=== PATIENT | male | born 1975 | race African-American/Black ===

== ENCOUNTER 2017-05-24 20:07 | Inpatient (IN) | payer OTHER, SELFPAY ==
[2017-05-24 21:23] LABS: Hematocrit 36.6 % (42.0-52.0); Red Blood Cell (RBC) Count 4.13 mill/uL (4.70-6.10); White Blood Cell (WBC) Count 4.4 thou/uL (4.8-10.8)
[2017-05-24 21:34] LABS: Lactic Acid - Sepsis 1.6 mmol/L (0.5-2.2)
[2017-05-24 21:37] LABS: Bilirubin Negative (Negative); Blood, Urine Negative (Negative); Glucose, Urine (Dipstick) Negative (Negative); Ketone, Urine Trace mg/dL (Negative); Nitrite Negative (Negative); Protein, Urine (Dipstick) Negative (Neg-Trace)
[2017-05-24 21:40] LABS: Band 7 % (5-11); Neutrophil 63 % (42-75)
[2017-05-24 21:53] LABS: ALT (SGPT) 146 U/L (8-55); AST (SGOT) 90 U/L (5-34); Alkaline Phosphatase 117 U/L (40-150); Anion Gap 11 mmol/L (10-20); BUN (Urea Nitrogen) 11 mg/dL (8.9-20.6); Bilirubin, Total 0.8 mg/dL (0.2-1.2); Calc. Creatinine Clearance 0 mL/min (70-130); Calcium 8.3 mg/dL (7.8-10.44); Carbon Dioxide 25 mmol/L (22-29); Chloride 104 mmol/L (98-107); Estimated GFR-MDRD Greater than 90; Lipase 4 U/L (8-78); Magnesium 1.7 mg/dL (1.6-2.6)
[2017-05-24 21:56] LABS: Troponin I Less than 0.010 ng/mL (< 0.028)
--- NOTE | 2017-05-24 23:04 | RAD ---
UPRIGHT PORTABLE CHEST ONE VIEW: 05/24/17 HISTORY: 41-year-old male with chest pain. There is marked enlargement of the cardiac silhouette which has the appearance of very large pericar dial effusion which was demonstrated on a CT scan from [facility] earlier this aft ernoon. There is some bilateral vascular congestion and bilateral pleural effusions. No confluent pn eumonia. IMPRESSION: Huge cardiac silhouette evidence for very large pericardial effusion which was documented on prior C T scan from [facility] earlier this afternoon. Small bilateral pleural effusions a nd some bilateral vascular congestion. Bibasilar subsegmental atelectasis. POS: [facility]
[2017-05-24] MEDS ORDERED: Ondansetron HCl/PF 4 MG/2 ML Vial IVP PRN (23:18)
[2017-05-24] MEDS ORDERED: HYDROcodone/Acetaminophen 5/325 mg Tablet PO PRN (23:18)
--- NOTE | 2017-05-24 23:18 | PDOC.EVN ---
Event Note - Event Note Event Note: [id number] h&p dictated 1. Pericardial effusion 2, HTN 3. R/O Cholecystitis 4. Abdominal pain plan: see orders
[2017-05-24] MEDS ORDERED: Morphine 2 MG/ML SYRINGE SLOW IVP PRN (23:22)
[2017-05-24] MEDS ORDERED: cloNIDine 0.1 MG TAB PO PRN (23:26)
[2017-05-25 00:22] LABS: Troponin I Less than 0.010 ng/mL (< 0.028)
[2017-05-25] MEDS ORDERED: Fentanyl 100 MCG/2 ML VIAL ONE ×2 (00:32→12:26)
[2017-05-25 01:48] VITALS: BMI 30.1
[2017-05-25] MEDS: Sodium Chloride 0.9% 1,000 ML IV SCH ×2 (02:03→13:43)
[2017-05-25] MEDS: Ampicillin/Sulbactam 3 GM in Sodium Chloride 0.9% 100 ML IVPB SCH ×5 (02:04→23:33)
[2017-05-25] MEDS: Acetaminophen 325 MG TAB PO PRN (02:07)
[2017-05-25 03:28] LABS: Mean Platelet Volume 5.9 fL (7.4-10.4); Red Blood Cell (RBC) Count 4.09 mill/uL (4.70-6.10); White Blood Cell (WBC) Count 4.8 thou/uL (4.8-10.8)
[2017-05-25 03:34] LABS: Band 5 % (5-11); Neutrophil 67 % (42-75)
[2017-05-25 03:45] LABS: ALT (SGPT) 135 U/L (8-55); AST (SGOT) 75 U/L (5-34); Alkaline Phosphatase 106 U/L (40-150); Anion Gap 10 mmol/L (10-20); BUN (Urea Nitrogen) 11 mg/dL (8.9-20.6); Bilirubin, Total 0.5 mg/dL (0.2-1.2); Calc. Creatinine Clearance 172 mL/min (70-130); Calcium 8.1 mg/dL (7.8-10.44); Carbon Dioxide 22 mmol/L (22-29); Chloride 106 mmol/L (98-107); Estimated GFR-MDRD Greater than 90; Globulin 3.7 g/dL (2.4-3.5); Protein, Total 6.5 g/dL (6.0-8.3)
[2017-05-25 03:49] LABS: Troponin I Less than 0.010 ng/mL (< 0.028)
--- NOTE | 2017-05-25 06:48 | HP ---
DATE OF ADMISSION: 05/24/2017 CHIEF COMPLAINT: Epigastric pain, chest pain. HISTORY OF PRESENT ILLNESS: The patient is a 41-year-old male with a past medical history of hypertension, currently lives in halfway. He was taken to [facility] because of the epigastric pain. The patient is having epigastric pain for the last 4 days. Pain is mid epigastric and right upper quadrant, constant pain, moderate in intensity, also there is some nausea. The patient started having some chest pain also since last night. Chest pain is substernal, tightness kind of pain, intermittent. No aggravating or alleviating factors. Denies dyspnea. Denies any cough, denies sputum production, denies any palpations, denies dizziness, denies any vomiting, denies any fever, denies any chills. The patient went to an outside hospital. The patient had CT chest and ultrasound gallbladder was positive for gallbladder wall thickening and the patient's CT chest showed moderate pericardial effusion, so the patient was transferred here for further care. Currently, no reports are available; history obtained from the ED physician. PAST MEDICAL HISTORY: Hypertension. PAST SURGICAL HISTORY: None. SOCIAL HISTORY: Denies smoking, denies alcohol, denies any drugs. FAMILY HISTORY: Denies heart problems. REVIEW OF SYSTEMS: Constitutional: Denies any fever, denies any chills. Eyes : Denies any vision problems. Ears: Denies any hearing loss. Neck: Denies any neck pain. Cardiovascular System: Positive for chest pain. Gastrointestinal System: Positive for abdominal pain. Positive for nausea. Cranial Nerve System: Denies syncope, denies lightheadedness. Psychiatric System: Denies anxiety. Integumentary: Denies any rash. Musculoskeletal: Denies any joint deformities. All other review of systems are reviewed and are negative. PHYSICAL EXAMINATION: CONSTITUTIONAL/VITAL SIGNS: At the time of H\T\P performed, blood pressure is 147/99, heart rate 126, pulse ox 97%. GENERAL: The patient appears comfortable. HEENT: Pupils are equal, round, and reactive. Anterior nares patent. Nose normal. Ears normal. Teeth intact. Tongue is moist. NECK: Supple. No JVD. CARDIOVASCULAR SYSTEM: S1, S2 present, tachycardic. No murmurs, no rubs, no gallops. RESPIRATORY SYSTEM: No wheezing, no rhonchi. Breath sounds bilaterally. GASTROINTESTINAL: Abdomen is soft, nontender, no guarding, no organomegaly. Right upper quadrant mild tender to palpate. No rebound tenderness. CRANIAL NERVE SYSTEM: Awake, follows commands. Strength intact, sensory intact. PSYCHIATRIC: Mood appropriate at this time. LABORATORY DATA: At the time of H\T\P performed, sodium 136, potassium 4.1, chloride 104, CO2 of 25, BUN of 11, creatinine 0.71, AST 90, ALT 146, albumin 3 , globulin 4, lipase 4. White count 4.4, hemoglobin 11.8, platelet count 325. ASSESSMENT AND PLAN: The patient is 41-year-old male: 1. Pericardial effusion. ED physician did speak to Dr. Estrada. We will admit the patient to IMU. We will keep the patient n.p.o. after midnight for possible pericardial window. We will order 2D echo also. We will consult Cardiology to evaluate the patient. 2. Rule out cholecystitis. As the reports are not available at this time, we will go ahead and order ultrasound gallbladder here. We will monitor the patient closely. We will consult General Surgery to evaluate the patient. 3. Nausea, p.r.n. antiemetics. 4. Hypertension. Monitor blood pressures. Continue home blood pressure meds. 5. Abdominal pain, p.r.n. pain meds. 6. Abnormal liver function tests. Plan to check hepatitis panel also. Case was discussed in detail with the patient. The patient is FULL CODE. MTDD
--- NOTE | 2017-05-25 08:28 | ULT ---
GALLBLADDER ULTRASOUND: Date: 05/24/17 HISTORY: Right upper quadrant pain. Evaluate for cholecystitis. COMPARISON: None. TECHNIQUE: Utilizing a multihertz transducer, sonographic imaging of the right upper quadrant is performed in t he longitudinal and transverse plane. FINDINGS: The head of the pancreas has a normal echotexture. The remainder of the pancreas is obscured by shamika l gas. Hepatic parenchyma has a normal echotexture. No hepatic masses or intrahepatic biliary dilatation. C ontour of the hepatic margin is maintained. Gallbladder wall is thickened. There is pericholecystic fluid. No sonographic evidence of cholelithi asis. Negative Gentile's ign. Right kidney has a normal cortical echotexture. No hydronephrosis. Right kidney measures 4.9 x 4.0 x 10.9 cm. Common bile duct diameter is 0.3 cm. There is evidence of pleural fluid and possible pericardial fluid. IMPRESSION: Sonographic findings worrisome for possible acalculous cholecystitis. Findings equivocal. Better int errogation with HIDA scan is recommended. POS: [facility]
[2017-05-25] MEDS ORDERED: FLU VACC QS2017-18 36 mo. & older 0.5 ML SYRINGE IM ONE (09:00)
--- NOTE | 2017-05-25 10:12 | CON ---
DATE OF CONSULTATION: 05/25/2017 CHIEF COMPLAINT: Upper abdominal pain. HISTORY OF PRESENT ILLNESS: This is a 41-year-old -Prydeinig male, who presents with a histor y of epigastric and chest pain, seen in the emergency department where CT of the abdomen and pelvis showed gallbladder wall thickening, and subsequently, had ultrasound showing no gallstones, but very , very prominent gallbladder wall thickening as well as moderate pericardial effusion. His chest x- ray revealed a markedly enlarged heart. I was consulted for whether this represents an acute cholec ystitis. PAST MEDICAL HISTORY: Hypertension. PAST SURGICAL HISTORY: Denies. SOCIAL HISTORY: No smoking, alcohol, or other drugs currently. REVIEW OF SYSTEMS: A 10-system review of systems is otherwise negative unless described above. PHYSICAL EXAMINATION: VITAL SIGNS: Pulse 118, blood pressure 134/93, O2 sat is 90%, temperature is 99.6. HEENT: Sclerae are anicteric. Oropharynx clear. NECK: No lymphadenopathy. CHEST: Clear. HEART: Increased rate, regular rhythm. ABDOMEN: Soft, minimally tender in the right upper quadrant and epigastric area without guarding or rebound. No abdominal or inguinal hernias. LABORATORY DATA: White blood cell count is 4, hemoglobin 11, platelet count is 315. Sodium 134, po tassium 3.9, creatinine 0.71, bilirubin is normal at 0.5, but AST and ALT are elevated at 75 and 135 . Alkaline phosphatase is normal and lipase normal. CA-125 elevated at 159. CEA is normal. Ultra sound shows gallbladder wall thickening, pericholecystic fluid, no gallstones, normal common bile du ct. ASSESSMENT: Pericardial effusion of uncertain etiology and I suspect gallbladder wall changes are s econdary to hepatic congestion. PLAN: Dr. Estrada has seen and recommended that he have his pericardial effusion addressed first. I do not suspect he needs cholecystectomy for this. I think this is all related to probable right-arturo ed heart failure given his underlying effusion.
[2017-05-25] MEDS ORDERED: Fentanyl 250 MCG/5 ML VIAL ONE (10:43)
[2017-05-25] MEDS ORDERED: Succinylcholine Chloride 20 MG/ML 10 ml SYRINGE FS ONE (11:16)
[2017-05-25] MEDS ORDERED: Ondansetron HCl/PF 4 MG/2 ML Vial ONE (11:16)
--- NOTE | 2017-05-25 11:50 | PDOC.PN ---
- Subjective Encounter Start Date: 05/25/17 Encounter Start Time: 10:15 Subjective: no sob or chestpain -: no recent fever or flu like illness -: no prior h/o heart disease - Objective MAR Reviewed: Yes Vital Signs & Weight: Vital Signs (12 hours) Temp Pulse Resp BP Pulse Ox 05/25/17 08:00 99.6 F 118 H 18 90 L 05/25/17 07:05 99.6 F 118 H 18 134/93 H 90 L 05/25/17 04:00 99 F 112 H 18 90 L 05/25/17 00:52 100.3 F H 123 H 19 93 L 05/25/17 00:14 100.3 F H 123 H 19 152/98 H 93 L Weight Weight 198 lb 1.6 oz I&O: 05/24/17 05/25/17 05/26/17 06:59 06:59 06:59 Intake Total 475 Output Total 520 Balance -45 Result Diagrams: 05/25/17 03:14 05/25/17 03:14 Phys Exam - Physical Examination HEENT: PERRLA, moist MMs Neck: no nodes, supple Respiratory: no wheezing, no rales Cardiovascular: RRR, no significant murmur Gastrointestinal: soft, non-tender, positive bowel sounds Musculoskeletal: no edema, pulses present Neurological: non-focal, moves all 4 limbs Psychiatric: A&O x 3 Dx/Plan (1) Pericardial effusion Code(s): I31.3 - PERICARDIAL EFFUSION (NONINFLAMMATORY) Status: Acute (2) HTN (hypertension) Code(s): I10 - ESSENTIAL (PRIMARY) HYPERTENSION Status: Chronic Qualifiers: Hypertension type: essential hypertension Qualified Code(s): I10 - Essential (primary) hypertension (3) GERD (gastroesophageal reflux disease) Code(s): K21.9 - GASTRO-ESOPHAGEAL REFLUX DISEASE WITHOUT ESOPHAGITIS Status: Chronic Qualifiers: Esophagitis presence: esophagitis presence not specified Qualified Code(s) : K21.9 - Gastro-esophageal reflux disease without esophagitis - Plan awaiting echo results -: d/w , will shortly be going for P.window if indicated -: RIRI with reflex, blood cs, hepatitis panel -: hiv is -ve -: had temp of 100, is on unasyn * . Review of Systems - Medications/Allergies Allergies/Adverse Reactions: Allergies Allergy/AdvReac Type Severity Reaction Status Date / Time No Known Drug Allergies Allergy Verified 05/24/17 23:33 Medications: Current Medications Acetaminophen (Tylenol) 650 mg PO Q4H PRN PRN Reason: Headache/Fever or Pain Last Admin: 05/25/17 02:07 Dose: 650 mg Hydrocodone Bitart/Acetaminophen ([place] 5/325) 1 tab PO Q4H PRN PRN Reason: Moderate Pain (4-6) Last Admin: 05/25/17 08:08 Dose: 1 tab Clonidine (Catapres) 0.1 mg PO Q8H PRN PRN Reason: SBP Greater Than 170 Ampicillin Sodium/Sulbactam (Sodium 3 gm/ Sodium Chloride) 100 mls @ 200 mls/ hr IVPB Q6HR KAYLYN Last Admin: 05/25/17 07:38 Dose: 100 mls Sodium Chloride (Normal Saline 0.9%) 1,000 mls @ 75 mls/hr IV .[id number] KAYLYN Last Admin: 05/25/17 02:03 Dose: 1,000 mls Morphine Sulfate (Morphine) 2 mg SLOW IVP Q4H PRN PRN Reason: Pain 7-10 Ondansetron HCl (Zofran) 4 mg IVP Q6H PRN PRN Reason: Nausea/Vomiting
[2017-05-25 11:52] LABS: BF Reference Range Comment Note:
[2017-05-25 11:59] LABS: BF Reference Range Comment Note:
[2017-05-25] MEDS ORDERED: Promethazine HCl 25 MG/ML VIAL SLOW IVP PRN (12:18)
[2017-05-25] MEDS ORDERED: Promethazine HCl 25 MG/ML VIAL IM PRN (12:18)
[2017-05-25] MEDS ORDERED: Ondansetron HCl/PF 4 MG/2 ML Vial IVP PRN (12:18)
--- NOTE | 2017-05-25 12:33 | CON ---
DATE OF CONSULTATION: 05/25/2017 HISTORY OF PRESENT ILLNESS: This is a 41-year-old gentleman with a history only of hypertension and has a 4-5 day history of epigastric and back discomfort. He was evaluated in the emergency room wh ere he was found to have what was felt to be possible chronic cholecystitis without gallstones and a pericardial effusion. This study was done in [place] and is not available for review. PAST MEDICAL HISTORY: Positive for hypertension only. PAST SURGICAL HISTORY: Negative. SOCIAL HISTORY: Currently is an inmate in detention. SOCIAL HISTORY: He is a nonsmoker. PHYSICAL EXAMINATION: GENERAL: Appearing his stated age. VITAL SIGNS: Blood pressure is 138 systolic and his heart rate is like I said 110-120. NECK: No JVD in the 30-degree upright position. No carotid bruits. LUNGS: Clear to auscultation. CARDIAC: Resting tachycardia. No murmurs. ABDOMEN: Soft, nontender, really no guarding or discomfort. EXTREMITIES: He has no peripheral edema. Chest x-ray shows cardiomegaly. Pending ultrasound, but I expect that the patient will need a peric ardial window and I have discussed this with him.
[2017-05-25 13:04] LABS: Fluid, Protein 5.3 g/dL (Not Available)
[2017-05-25 13:06] LABS: Fluid, Protein 5.2 g/dL (Not Available)
--- NOTE | 2017-05-25 13:07 | RAD ---
PORTABLE CHEST: Date: 05/25/17 HISTORY: Post pericardial window placement. Shortness of breath. COMPARISON: 05/24/17. FINDINGS/IMPRESSION: There has been decrease in the cardiac silhouette when compared to the prior study which would be co nsistent with pericardial window placement and decreasing pericardial effusion. Hazy opacity in both lung bases suggests small effusions and left basilar atelectasis and/or infiltr ate. Upper lung solis are clear and well aerated. POS: [facility]
[2017-05-25] MEDS ORDERED: Fentanyl 100 MCG/2 ML VIAL SLOW IVP PRN (13:22)
[2017-05-25] MEDS ORDERED: HYDROcodone/Acetaminophen 5/325 mg Tablet PO PRN ×2 (13:22)
[2017-05-25] MEDS ORDERED: HYDROcodone/Acetaminophen 10/325 mg Tablet PO PRN (13:22)
[2017-05-25 13:42] LABS: BF Color Red; RBC Count-Automated 31000 /cumm
[2017-05-25 13:44] LABS: BF Color Red; RBC Count-Automated 21000 /cumm
[2017-05-25 14:08] LABS: Number Cells Counted-Fluids 100
--- NOTE | 2017-05-25 14:16 | OP ---
PREOPERATIVE DIAGNOSIS: Pericardial effusion with tamponade physiology. POSTOPERATIVE DIAGNOSIS: Pericardial effusion with tamponade physiology. PROCEDURE: Subxiphoid pericardial window. FINDINGS: A 1000 mL of clear yellow fluid with inflammatory exudate on the right ventricular surfac e and the pericardial sac was smoothed to palpation. DESCRIPTION OF PROCEDURE: After adequate anesthesia had been obtained, the patient was prepped and draped. Incision was made at the level of the xiphoid. Fascia was incised and blunt dissection was carried up under the xiphoid and distal sternum. Using a Kitner and the suction apparatus, the per icardium was identified and the Bovie used to enter this. After the fluid had been removed and sent for studies, a 24 drain was placed into the pericardial sac. Patient then had the fascia closed wi th #1 Vicryl, subcutaneous with 2-0 Vicryl, and skin closed. He tolerated the procedure well with m arked improvement in blood pressure and cardiac output with decompression.
[2017-05-25 14:53] LABS: Number Cells Counted-Fluids 100
[2017-05-25] MEDS: HYDROcodone/Acetaminophen 10/325 mg Tablet PO PRN (15:55)
--- NOTE | 2017-05-25 17:41 | CON ---
DATE OF CONSULTATION: 05/25/2017 HISTORY OF PRESENT ILLNESS: Mr. Byrd is a 41-year-old male, who presented yesterday with complain ts of epigastric and chest discomfort. Chest radiograph showed no cardiomegaly. Abdominal ultrasou nd showed a thickened gallbladder with fluid around the gallbladder. He was found to have a pericardial effusion, subsequently scheduled to go to the operating room for drainage of this/pericardial window. PAST MEDICAL HISTORY: Remarkable for hypertension. SOCIAL HISTORY: He is a nonsmoker and nondrinker. FAMILY HISTORY: Negative for heart disease. REVIEW OF SYSTEMS: Otherwise negative. PHYSICAL EXAMINATION: VITAL SIGNS: Afebrile, 99.6. Temperature earlier was 100.3, heart rate 118, respiratory rate 18, o ximetry is 90. Blood pressure 134/93. LUNGS: Clear. HEART: Regular rhythm, distant, barely audible S1 and S2. ABDOMEN: Soft and nontender. EXTREMITIES: Without asymmetry. LABORATORY DATA: White count 4.8, hemoglobin 11.6 and platelets 315,000. Electrolytes were normal. Glucose 155. AST and ALT were elevated. Albumin was 2.8. No urinalysis. IMPRESSION: Pericardial effusion. PLAN: Pericardial window.
[2017-05-26] MEDS: HYDROcodone/Acetaminophen 10/325 mg Tablet PO PRN ×2 (02:31→20:27)
[2017-05-26] MEDS: Sodium Chloride 0.9% 1,000 ML IV SCH (04:23)
[2017-05-26] MEDS: Ampicillin/Sulbactam 3 GM in Sodium Chloride 0.9% 100 ML IVPB SCH ×2 (06:48→12:06)
--- NOTE | 2017-05-26 11:43 | EKG ---
Test Reason : Blood Pressure : / mmHG Vent. Rate : 119 BPM Atrial Rate : 119 BPM P-R Int : 116 ms QRS Dur : 072 ms QT Int : 286 ms P-R-T Axes : 052 026 024 degrees QTc Int : 402 ms Sinus tachycardia Low voltage QRS Nonspecific ST and T wave abnormality Abnormal ECG No previous ECGs available Confirmed by DR. Yecenia BRICENO ([id number]) on 05/26/2017 11:43:00 AM Referred By: CORI Confirmed By:DR. Yecenia BRICENO
[2017-05-26] MEDS: Acetaminophen 325 MG TAB PO PRN ×2 (12:07→16:06)
--- NOTE | 2017-05-26 13:36 | PRG ---
DATE OF SERVICE: 05/26/2017 PHYSICAL EXAMINATION: VITAL SIGNS: Mr. Byrd is afebrile, temperature max 100.5, heart rate 114, respiratory rate is 18, oximetry is 96 on 2 liters, blood pressure 133/87. He has only had 20 mL of drainage out of his APOLINAR drain in his pericardium. Intake and output was negative 2600. He says he is feeling better. LUNGS: His lungs are clear. IMPRESSION: Status post pericardial window for a large pericardial effusion with impending tamponad e. PLAN: Await pathology. Continue current care.
[2017-05-26] MEDS: methylPREDNISolone Sod Succ/PF 125 MG/2 ML VIAL IVP SCH (14:51)
--- NOTE | 2017-05-26 15:01 | PDOC.PN ---
- Subjective Encounter Start Date: 05/26/17 Encounter Start Time: 10:45 Subjective: has pain at drain site, no sob - Objective MAR Reviewed: Yes Vital Signs & Weight: Vital Signs (12 hours) Temp Pulse Resp BP Pulse Ox 05/26/17 11:21 100.5 F H 124 H 18 133/87 94 L 05/26/17 08:00 98.8 F 114 H 18 96 05/26/17 07:10 98.8 F 114 H 18 136/90 96 05/26/17 03:42 98.6 F 120 H 18 130/92 H 91 L Weight Weight 198 lb 1.6 oz I&O: 05/25/17 05/26/17 05/27/17 06:59 06:59 06:59 Intake Total 002 926 9731 Output Total 520 2960 3080 Balance -45 -2600 270 Result Diagrams: 05/25/17 03:14 05/25/17 03:14 Phys Exam - Physical Examination HEENT: PERRLA, moist MMs Neck: no JVD, supple Respiratory: no wheezing, no rales Cardiovascular: RRR, no significant murmur Gastrointestinal: soft, non-tender, positive bowel sounds Musculoskeletal: no edema, pulses present Neurological: non-focal, moves all 4 limbs Psychiatric: A&O x 3 Dx/Plan (1) Pericardial effusion Code(s): I31.3 - PERICARDIAL EFFUSION (NONINFLAMMATORY) Status: Acute Comment: s/p drainage of 1 liter fluid with p.window 05/25/2017 (2) HTN (hypertension) Code(s): I10 - ESSENTIAL (PRIMARY) HYPERTENSION Status: Chronic Qualifiers: Hypertension type: essential hypertension Qualified Code(s): I10 - Essential (primary) hypertension (3) GERD (gastroesophageal reflux disease) Code(s): K21.9 - GASTRO-ESOPHAGEAL REFLUX DISEASE WITHOUT ESOPHAGITIS Status: Chronic Qualifiers: Esophagitis presence: esophagitis presence not specified Qualified Code(s) : K21.9 - Gastro-esophageal reflux disease without esophagitis - Plan is on unasyn -: may tx to tele -: if drain is out may go to med floor if ok with CTS -: unclear etiology for p.effusion, ?viral * . Review of Systems - Medications/Allergies Allergies/Adverse Reactions: Allergies Allergy/AdvReac Type Severity Reaction Status Date / Time No Known Drug Allergies Allergy Verified 05/24/17 23:33 Medications: Current Medications Acetaminophen (Tylenol) 650 mg PO Q4H PRN PRN Reason: Headache/Fever or Pain Last Admin: 05/26/17 12:07 Dose: 650 mg Hydrocodone Bitart/Acetaminophen ([place] 10/325) 1 tab PO Q4H PRN PRN Reason: Moderate Pain (7-8) Hydrocodone Bitart/Acetaminophen ([place] 10/325) 2 tab PO Q4H PRN PRN Reason: Severe Pain (9-10) Last Admin: 05/26/17 02:31 Dose: 2 tab Hydrocodone Bitart/Acetaminophen ([place] 5/325) 1 tab PO Q4H PRN PRN Reason: Moderate Pain (3-4) Hydrocodone Bitart/Acetaminophen ([place] 5/325) 2 tab PO Q4H PRN PRN Reason: Moderate Pain (5-6) Last Admin: 05/25/17 22:24 Dose: 2 tab Albuterol/Ipratropium (Duoneb) 3 ml EZPAP [id number] PRN PRN Reason: SOB &/or Wheezing Clonidine (Catapres) 0.1 mg PO Q8H PRN PRN Reason: SBP Greater Than 170 Colchicine (Colcrys) 0.6 mg PO BID KAYLYN Ampicillin Sodium/Sulbactam Sodium 3 gm/ Syringe 1.6 ml/Sterile Water 8 mls @ 32 mls/hr SLOW IVP Q6HR KAYLYN Methylprednisolone Sodium Succinate (Solu-Medrol) 80 mg IVP 1400 KAYLYN Last Admin: 05/26/17 14:51 Dose: 80 mg Morphine Sulfate (Morphine) 2 mg SLOW IVP Q4H PRN PRN Reason: Pain 7-10 Last Admin: 05/25/17 13:44 Dose: 2 mg Ondansetron HCl (Zofran) 4 mg IVP Q6H PRN PRN Reason: Nausea/Vomiting Sodium Chloride (Flush - Normal Saline) 10 ml IVF Q12HR KAYLYN Sodium Chloride (Flush - Normal Saline) 10 ml IVF PRN PRN PRN Reason: Saline Flush
--- NOTE | 2017-05-26 15:31 | CON ---
DATE OF CONSULTATION: 05/26/2017 REASON FOR CONSULTATION: Large pericardial effusion, status post drainage. HISTORY OF PRESENT ILLNESS: Mr. Byrd is a 41-year-old -[place] gentleman who is feeling s hort of breath and just unwell for about a week, but started having more difficulty on 05/24/2017. He previously was hypertensive, he started having epigastric pain to mid epigastric right upper quad rant. A part of the evaluation that showed a very large cardiac silhouette and found to have a larg e pericardial effusion, subsequently underwent drainage by Dr. Estrada. The patient is feeling better now, but the heart rate is increased. PAST MEDICAL HISTORY: Hypertension. PAST SURGICAL HISTORY: None. SOCIAL HISTORY: No smoking, no alcohol, no drugs. FAMILY HISTORY: Denies heart problems. REVIEW OF SYSTEMS: Constitutional: He tells me that he did have some fever before admission. Visi on: No changes. Hearing: No changes. Pulmonary: Positive for some shortness of breath. Cardiac : No chest pain. Gastrointestinal: As above. Skin: No rashes. Neurologic: No unilateral weakness or numbness. Psychiatric: No unusual depression or anxiety. PHYSICAL EXAMINATION: GENERAL: A pleasant 41-year-old -[place] man, currently resting comfortably. VITAL SIGNS: Blood pressure 147/99 initially and that was the initial admitting history and physica l, now 133/87, pulse is still 100-124. HEENT: Eyes: Sclerae nonicteric. Mouth: Mucous membranes moist. NECK: Supple, no lymphadenopathy. LUNGS: Clear anteriorly and laterally. CARDIOVASCULAR: Tachycardic for rest. No murmur, rub or gallop. ABDOMEN: Soft, nontender, no hepatosplenomegaly. EXTREMITIES: Warm, dry, no clubbing or cyanosis. There is no edema. HEMATOLOGIC: There is no unusual bruising. PSYCHIATRIC: Mood and affect normal. SKIN: Warm and dry. PERTINENT LABORATORY DATA AND IMAGING: The hemoglobin is 11.6. Troponins were normal. Magnesium 1 .7. EKG, initially sinus tachycardia with low voltage. Even after the drainage, the voltage is low. Echocardiogram showed large pericardial effusion with tamponade with normal left ventricular functio n. Liver function tests are elevated, but trending downward probably due to hepatic congestion. ASSESSMENT: 1. Pericardial effusion, large, so far idiopathic? related to viral pericarditis. 2. History of hypertension, previously on lisinopril. 3. Sinus tachycardia. PLAN: 1. We will add colchicine. 2. I will be glad to follow with you. Consider adding low dose beta alessandro to help with heart rat e. The patient no longer has tamponade, therefore should be fine to give some beta alessandro to slow the rate.
[2017-05-26] MEDS: Ampicillin/Sulbactam 3 GM, Syringe 1.6 ML in Sterile Water 6.4 ML SLOW IVP SCH (17:49)
[2017-05-26] MEDS: Colchicine 0.6 MG TAB PO SCH (20:27)
[2017-05-26] MEDS: Metoprolol Tartrate 25 MG TAB PO SCH (20:28)
[2017-05-27] MEDS: Ampicillin/Sulbactam 3 GM, Syringe 1.6 ML in Sterile Water 6.4 ML SLOW IVP SCH ×2 (00:13→05:57)
[2017-05-27] MEDS: Colchicine 0.6 MG TAB PO SCH ×2 (09:52→21:57)
[2017-05-27] MEDS: Amoxicillin/Potassium Clav 875 MG TAB PO SCH ×2 (09:52→21:57)
[2017-05-27] MEDS: Metoprolol Tartrate 25 MG TAB PO SCH ×2 (09:52→21:57)
--- NOTE | 2017-05-27 12:07 | PDOC.PN ---
- Subjective Encounter Start Date: 05/27/17 Encounter Start Time: 10:15 Subjective: no sob, has mild pain at surgical site - Objective MAR Reviewed: Yes Vital Signs & Weight: Vital Signs (12 hours) Temp Pulse Resp BP Pulse Ox 05/27/17 07:35 97.6 F 108 H 16 136/90 92 L 05/27/17 03:12 97.6 F 94 16 136/86 92 L Weight Weight 198 lb 1.6 oz I&O: 05/26/17 05/27/17 05/28/17 06:59 06:59 06:59 Intake Total 360 3350 Output Total 2960 4390 Balance -2600 -1040 Result Diagrams: 05/25/17 03:14 05/25/17 03:14 Phys Exam - Physical Examination HEENT: PERRLA, moist MMs Neck: no JVD, supple Respiratory: no wheezing, no rales Cardiovascular: RRR, no significant murmur Gastrointestinal: soft, non-tender, positive bowel sounds Musculoskeletal: no edema, pulses present Neurological: non-focal, moves all 4 limbs Psychiatric: A&O x 3 Dx/Plan (1) Pericardial effusion Code(s): I31.3 - PERICARDIAL EFFUSION (NONINFLAMMATORY) Status: Acute Comment: s/p drainage of 1 liter fluid with p.window 05/25/2017 (2) HTN (hypertension) Code(s): I10 - ESSENTIAL (PRIMARY) HYPERTENSION Status: Chronic Qualifiers: Hypertension type: essential hypertension Qualified Code(s): I10 - Essential (primary) hypertension (3) GERD (gastroesophageal reflux disease) Code(s): K21.9 - GASTRO-ESOPHAGEAL REFLUX DISEASE WITHOUT ESOPHAGITIS Status: Chronic Qualifiers: Esophagitis presence: esophagitis presence not specified Qualified Code(s) : K21.9 - Gastro-esophageal reflux disease without esophagitis - Plan janeth screen is -ve, hep panel and hiv -ve -: histopath no malignancy -: p.fluid had predominantly lymphocytes, likely cause ?viral -: is on oral augmentin, colchicine and prednisone, drain is removed now -: dc plan per cardio/cts advice * . Review of Systems - Medications/Allergies Allergies/Adverse Reactions: Allergies Allergy/AdvReac Type Severity Reaction Status Date / Time No Known Drug Allergies Allergy Verified 05/24/17 23:33 Medications: Current Medications Acetaminophen (Tylenol) 650 mg PO Q4H PRN PRN Reason: Headache/Fever or Pain Last Admin: 05/26/17 16:06 Dose: 650 mg Hydrocodone Bitart/Acetaminophen ([place] 10/325) 1 tab PO Q4H PRN PRN Reason: Moderate Pain (7-8) Hydrocodone Bitart/Acetaminophen ([place] 10/325) 2 tab PO Q4H PRN PRN Reason: Severe Pain (9-10) Last Admin: 05/26/17 20:27 Dose: 2 tab Hydrocodone Bitart/Acetaminophen ([place] 5/325) 1 tab PO Q4H PRN PRN Reason: Moderate Pain (3-4) Hydrocodone Bitart/Acetaminophen ([place] 5/325) 2 tab PO Q4H PRN PRN Reason: Moderate Pain (5-6) Last Admin: 05/25/17 22:24 Dose: 2 tab Albuterol/Ipratropium (Duoneb) 3 ml EZPAP [id number] PRN PRN Reason: SOB &/or Wheezing Amoxicillin/Clavulanate Potassium (Augmentin) 875 mg PO Q12HR [facility] Last Admin: 05/27/17 09:52 Dose: 875 mg Clonidine (Catapres) 0.1 mg PO Q8H PRN PRN Reason: SBP Greater Than 170 Colchicine (Colcrys) 0.6 mg PO BID [facility] Last Admin: 05/27/17 09:52 Dose: 0.6 mg Methylprednisolone Sodium Succinate (Solu-Medrol) 80 mg IVP 1400 [facility] Last Admin: 05/26/17 14:51 Dose: 80 mg Metoprolol Tartrate (Lopressor) 12.5 mg PO BID [facility] Last Admin: 05/27/17 09:52 Dose: 12.5 mg Morphine Sulfate (Morphine) 2 mg SLOW IVP Q4H PRN PRN Reason: Pain 7-10 Last Admin: 05/25/17 13:44 Dose: 2 mg Ondansetron HCl (Zofran) 4 mg IVP Q6H PRN PRN Reason: Nausea/Vomiting Prednisone (Prednisone) 40 mg PO ONE [facility] Prednisone (Prednisone) 20 mg [facility] Sodium Chloride (Flush - Normal Saline) 10 ml IVF Q12HR [facility] Last Admin: 05/27/17 09:52 Dose: 10 ml Sodium Chloride (Flush - Normal Saline) 10 ml IVF PRN PRN PRN Reason: Saline Flush
[2017-05-27] MEDS ORDERED: predniSONE 20 MG TAB PO SCH (12:15)
--- NOTE | 2017-05-27 13:28 | PRG ---
DATE OF SERVICE: 05/27/2017 SUBJECTIVE: Mr. Byrd has no complaints. OBJECTIVE: VITAL SIGNS: He is afebrile, heart rate 76, respiratory rate is 18, oximetry is 94, blood pressure 136/87. CARDIAC: His pericardial drain was removed this morning. LUNGS: Clear. IMPRESSION: Status post pericardial window for impending tamponade? likely viral mediated. Pericar dial specimen showed no malignant cells. Management with anti-inflammatories either steroids or non steroidals would be indicated from here forward. I gave him a dose of IV Medrol yesterday.
[2017-05-27] MEDS: methylPREDNISolone Sod Succ/PF 125 MG/2 ML VIAL IVP SCH (14:56)
[2017-05-27] MEDS ORDERED: Diabetic Tussin 200 MG/10 ML UDCUP PO PRN (16:47)
[2017-05-27] MEDS: HYDROcodone/Acetaminophen 10/325 mg Tablet PO PRN (21:56)
[2017-05-27] MEDS: Refresh (Polyvinyl Alcohol 1.4%/Povidone 0.6%) Opth Drops EA EYE SCH (23:58)
[2017-05-28] MEDS ORDERED: predniSONE 20 MG TAB PO SCH (08:00)
[2017-05-28] MEDS ORDERED: Nortriptyline HCl 25 MG CAP PO SCH (09:00)
--- NOTE | 2017-05-28 09:28 | PDOC.PN ---
- Subjective Encounter Start Date: 05/28/17 Encounter Start Time: 08:15 Subjective: no trouble breathing or pain now - Objective MAR Reviewed: Yes Vital Signs & Weight: Vital Signs (12 hours) Temp Pulse Resp BP Pulse Ox 05/28/17 08:00 98.2 F 114 H 18 140/92 H 92 L 05/28/17 04:00 98.3 F 99 18 140/87 95 Weight Weight 198 lb 1.6 oz I&O: 05/27/17 05/28/17 05/29/17 06:59 06:59 06:59 Intake Total 3350 1640 Output Total 4340 0050 Balance -1040 -850 Result Diagrams: 05/25/17 03:14 05/25/17 03:14 Phys Exam - Physical Examination HEENT: PERRLA, moist MMs Neck: no JVD, supple Respiratory: no wheezing, no rales Cardiovascular: RRR, no significant murmur Gastrointestinal: soft, non-tender, positive bowel sounds Musculoskeletal: no edema, pulses present Neurological: non-focal, moves all 4 limbs Psychiatric: A&O x 3 Dx/Plan (1) Pericardial effusion Code(s): I31.3 - PERICARDIAL EFFUSION (NONINFLAMMATORY) Status: Acute Comment: s/p drainage of 1 liter fluid with p.window 05/25/2017 (2) HTN (hypertension) Code(s): I10 - ESSENTIAL (PRIMARY) HYPERTENSION Status: Chronic Qualifiers: Hypertension type: essential hypertension Qualified Code(s): I10 - Essential (primary) hypertension (3) GERD (gastroesophageal reflux disease) Code(s): K21.9 - GASTRO-ESOPHAGEAL REFLUX DISEASE WITHOUT ESOPHAGITIS Status: Chronic Qualifiers: Esophagitis presence: esophagitis presence not specified Qualified Code(s) : K21.9 - Gastro-esophageal reflux disease without esophagitis - Plan cxr as his spo2 was around 88% per nursing staff, likely due to poor effort -: upright cxr -: may dc to [facility] if cxr and spo2 on amb is normal -: colchicine bid, oral prednisone * .
--- NOTE | 2017-05-28 09:41 | RAD ---
UPRIGHT PORTABLE CHEST ONE VIEW: History: 41-year-old male with follow up shortness of breath and status post pericardial window. Comparison: 05-25-17 FINDINGS: Monitor leads overlie the chest. There is cardiomegaly with bilateral pleural effusions. The interst itial and alveolar edema seen on the prior study appears to have resolved or markedly improved. No n ew process. IMPRESSION: Overall stable appearing cardiomegaly and bilateral pleural effusions. Improvement in previously not ed interstitial and alveolar edema. Continued short term follow up. POS: OFF
[2017-05-28] MEDS: Amoxicillin/Potassium Clav 875 MG TAB PO SCH (09:46)
[2017-05-28] MEDS: Metoprolol Tartrate 25 MG TAB PO SCH (09:48)
[2017-05-28] MEDS: Colchicine 0.6 MG TAB PO SCH (09:50)
[2017-05-28] MEDS: Refresh (Polyvinyl Alcohol 1.4%/Povidone 0.6%) Opth Drops EA EYE SCH (10:00)
[2017-05-28] MEDS ORDERED: Mag-Al 1200 mg/1200 mg/30 ML UDCUP PO SCH (12:30)
--- NOTE | 2017-05-28 13:04 | PRG ---
DATE OF SERVICE: 05/28/2017 SUBJECTIVE: Mr. Byrd is doing fine today, sitting up in chair, feels well. OBJECTIVE: VITAL SIGNS: Blood pressure 140/90, pulse is 114 earlier, now it is 100. LUNGS: Clear. CARDIAC: Normal S1, S2. ABDOMEN: Soft, nontender. EXTREMITIES: There is no edema. IMAGING: Echocardiogram was repeated in view of the increased heart rate, it is only a small perica rdial effusion now mostly posterior, it is not hemodynamically significant. The ejection fraction i s 50%-55%, mild left ventricular dilatation. ASSESSMENT: 1. Pericardial effusion, probably idiopathic, most likely viral. 2. Sinus tachycardia. 3. Could have mild cardiomyopathy with an ejection fraction of 50%-55%. PLAN: 1. Beta blockers, metoprolol 25 mg twice a day. 2. If blood pressure is elevated, I would recommend adding an ANGEL inhibitor. 3. Colchicine 0.6 mg twice a day for 2 months.
[2017-05-28 20:55] VITALS: BP 143/94; TEMP 97.7
[2017-05-28] MEDS ORDERED: Metoprolol Tartrate 25 MG TAB PO SCH (21:00)
--- NOTE | 2017-05-29 00:12 | DIS ---
DATE OF ADMISSION: 05/24/2017 DATE OF DISCHARGE: 05/28/2017 DISCHARGE DISPOSITION: To [facility]. PRIMARY DISCHARGE DIAGNOSIS: Pericardial effusion status post pericardial window with drainage of 1 liter of fluid, likely due to viral pericarditis. SECONDARY DISCHARGE DIAGNOSES: Hypertension and gastroesophageal reflux disease. PROCEDURES DONE DURING HOSPITALIZATION: The patient has had an echo with 2D Doppler done on the , which showed large pericardial effusion with tamponade physiology. He has had a pericardial window placed on 05/25/[address] Estrada with removal of nearly a liter of clear yellow fluid with inflammatory exudate on the right ventricular surface. Pericardial fluid cytology shows no malignant cells, it was predominantly blood and degenerated cellular material. Repeat echo done this morning shows an EF of 50% to 55%. There was small pericardial effusion, which was mostly in the posterior area. No evidence of tamponade. Blood cultures x2 no growth. Respiratory virus panel , PCR was negative. Pericardial fluid culture showed no organisms on the Gram stain. AFB smear on the pericardial fluid shows no acid-fast bacilli area on the concentrated specimen. Culture is pending at present. RIRI screen is negative. Pericardial fluid was cloudy, turbid with 1650 WBCs and 21,000 RBCs. There was 95% lymphocytes seen, had a total protein of 5.3 and 40 of malaise. Acute hepatitis panel was negative. HIV 1 and 2 nonreactive. Albumin 2.8. Cardiac enzymes x3 were negative. CEA levels were 1.1. INPATIENT CONSULTS: Dr. Estrada for General Cardiothoracic Surgery, Dr. Salgado for Critical Care and Dr. Gomez for Cardiology. DISCHARGE PLAN: Patient to follow up with primary care physician at the [facility] facility in 1 week. BRIEF COURSE DURING HOSPITALIZATION: Patient initially came in with complaints of epigastric pain and chest pain. His initial chest x-ray was suspicious for pericardial effusion. He had a CT chest done, which also showed moderate pericardial effusion and an echo with 2D Doppler done, showed tamponade physiology with large pericardial effusion. He was taken to operating room for pericardial window by Dr. Estrada. Multiple workup as to the cause of pericardial effusion were negative. His RIRI screen was negative. Cultures from the pericardial fluid has not grown any organism. Blood cultures were negative. His nasopharyngeal viral swab was negative for multiple viruses. His pericardial fluid differential was predominantly lymphocytic. There was no malignancy seen on the histopathology cytology. Likely, patient's pericardial effusion is due to virus. He was placed on colchicine and one dose of high dose steroids were given IV. The patient needs to continue colchicine for a total of 2 months per Cardiology advice. He also needs to continue prednisone 5 mg a day for another 10 days and to discontinue. He was also placed on a small dose of Lopressor 25 mg twice daily. The patient was closely monitored by above-mentioned specialists. He has had a repeat echo done this morning, which has shown very minimal pericardial effusion. He is hemodynamically stable and has been cleared by all specialists for discharge back to [facility] today. Please see a [id number] documentation on [facility] for the day of discharge. CARLOSD
--- NOTE | 2017-05-30 15:52 | EKG ---
Test Reason : Blood Pressure : / mmHG Vent. Rate : 101 BPM Atrial Rate : 101 BPM P-R Int : 122 ms QRS Dur : 084 ms QT Int : 364 ms P-R-T Axes : 037 -05 -26 degrees QTc Int : 471 ms Sinus tachycardia Nonspecific T wave abnormality Abnormal ECG When compared with ECG of 25-MAY-2017 10:09, Nonspecific T wave abnormality, improved in Lateral leads Confirmed by DR. July ALMANZAR ([id number]) on 05/30/2017 3:52:22 PM Referred By: YOHAN Confirmed By:DR. July ALMANZAR
== END 2017-05-28 14:38 | DRG 272 ==
LOC: EDBD 20:07 → ERS 20:07 → EEVIPCON 20:07 → IMCU/EMU 22:45 → 2NO 05-26 18:41
PROVIDERS: ADMIT Internal Medicine; ATTEND Internal Medicine
PROC: 0W9D0ZZ Drainage of Pericardial Cavity, Open Approach (ICD-10-PCS; principal; 2017-05-25)
DX: I30.1 Infective pericarditis (principal); I10 Essential (primary) hypertension; I31.3 Pericardial effusion (noninflammatory); K21.9 Gastro-esophageal reflux disease without esophagitis; R00.0 Tachycardia, unspecified
CPT/HCPCS: 36415; 71010; 76705; 80053; 80074; 81003; 82150; 82378; 82553; 83605; 83690; 83735; 84157; 84484; 85007; 85025; 85027; 85060; 86038; 86304; 87040; 87070; 87102; 87116; 87205; 87206; 87389; 87633; 88112; 88305; 89051; 93005; 93010; 93306; 96361; 96374; A4216; J0295; J2270; J2405; J2930; J3010; J7050; J7506